=== PATIENT | male | born 2000 | race Caucasian/White ===

== ENCOUNTER 2024-07-03 09:14 | Emergency (ER) | payer OTHER, SELFPAY ==
[2024-07-03 09:24] VITALS: BP 137/72; PULSE 86; RESP 18; TEMP 38; O2SAT 96; BMI 36.3
--- NOTE | 2024-07-03 09:57 | ED.WOUNDLAC ---
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 His tetanus status is up-to-date. Related Data Home Medications ?Medication ?Instructions ?Recorded ?Confirmed No Known Home Medications 07/03/24 07/03/24 Allergies Allergy/AdvReac Type Severity Reaction Status Date / Time No Known Drug Allergies Allergy Verified 07/03/24 09:28 Review of Systems Status of ROS: Reports: 10 or more systems reviewed and unremarkable except as noted in History and below Narrative: Constitutional: No fevers, no weight gain or loss. Eyes: No discharge. No vision changes. HENT: No congestion, no sore throat, no ear pain. Cardiovascular: No chest pain, no palpitations. Respiratory: No shortness of breath, no wheezes, no cough. Gastrointestinal: No abdominal pain, no vomiting, no diarrhea. Genitourinary: No dysuria, no hematuria. Musculoskeletal: Normal range of motion. Skin: No rashes, no pruritis. Neurological: No dizziness, weakness, sensory change, speech change. Endo/Heme/Allergies: No bruising or bleeding. No polydipsia. Pysch: no suicidality, no anxiety, no insomnia. All other systems reviewed and are negative. PFSH PFSH Social History Non-prescribed substance use: denies use Exam Narrative: Exam Narrative: Constitutional: Well-developed, well-nourished, no acute distress. HEENT: Normocephalic, atraumatic. Neck: Normal range of motion. Nontender. Supple. Heart: Intact distal pulses. Lungs: No chest discomfort. No wheezes, rhonchi, or rales. Abdomen: Nontender. Back: Normal range of motion. Extremities: Normal range of motion. Avulsion injuries of the tips of his left ring and middle finger. The ring finger injury has a diameter of about 1 cm. The little finger injury spans about 0.5 cm. Bleeding is stopped. Skin: Intact. No rash. Warm. No erythema or pallor. Neurologic: No altered sensation. No weakness. Alert and oriented. Psychiatric: No suicidality. No anxiety or depression. No insomnia. Nursing notes and vitals signs are reviewed. Const: Vital Signs, click to edit/add: Vital Signs - 24 hr 07/03/24 09:24 Temperature 100.4 F H Pulse Rate [Pulse Oximeter] 86 Respiratory Rate 18 Blood Pressure [Ri ght Upper Arm] 137/72 Pulse Oximetry 96 Oxygen Delivery Me thod Room Air Course Vital Signs Vital signs: Initial Vital Signs Temperature 100.4 F H 07/03/24 09:24 Temperature Source Temporal Artery Scan 07/03/24 09:24 Pulse Rate 86 07/03/24 09:24 Respiratory Rate 18 07/03/24 09:24 Blood Pressure 137/72 07/03/24 09:24 Blood Pressure Mean 93 07/03/24 09:24 Blood Pressure Position Sitting 07/03/24 09:24 Pulse Oximetry 96 07/03/24 09:24 Oxygen Delivery Method Room Air 07/03/24 09:24 Vital Signs Temperature 100.4 F H 07/03/24 09:24 Pulse Rate 86 07/03/24 09:24 Respiratory Rate 18 07/03/24 09:24 Blood Pressure 137/72 07/03/24 09:24 Pulse Oximetry 96 07/03/24 09:24 Oxygen Delivery Method Room Air 07/03/24 09:24 Temperature 100.4 F H 07/03/24 09:24 Pulse Rate 86 07/03/24 09:24 Respiratory Rate 18 07/03/24 09:24 Blood Pressure 137/72 07/03/24 09:24 Pulse Oximetry 96 07/03/24 09:24 Oxygen Delivery Method Room Air 07/03/24 09:24 MDM - Wound/Laceration MDM Narrative Medical decision making narrative: This patient comes in with injury to his left ring and little fingers as described above. He no longer has active bleeding. The wounds were cleansed. These avulsion type wounds are not ones that can be repaired with sutures. I did apply Dermabond with excellent results. Instructions regarding wound care were given along with her return to work note. Discharge Plan Discharge Clinical Impression: Avulsion of skin Patient Disposition: Home, Self-Care Condition: Improved Additional Instructions: Keep wounds covered and increase activity as tolerated. Prescriptions: No Action No Known Home Medications [facility]
== END 2024-07-03 10:30 | disposition home or self-care (01) ==
LOC: ED 10:30
PROVIDERS: Emergency Provider Emergency Medicine Emergency Medical Services
DX: S61.215A Laceration without foreign body of left ring finger without damage to nail, initial encounter (principal); W29.0XXA Contact with powered kitchen appliance, initial encounter; S61.217A Laceration without foreign body of left little finger without damage to nail, initial encounter
CPT/HCPCS: 12001; 99282; 99284